=== PATIENT | female | born 1990 | race Caucasian/White ===

== ENCOUNTER → 2021-10-09 | Outpatient (CLI) | payer BC ==
--- NOTE | 2021-10-09 17:20 | KCIC ---
EXAM: CHEST 2 VIEWS. HISTORY: Shortness of breath. COMPARISON: None. FINDINGS: Frontal and lateral views of the chest are obtained. There are no confluent infiltrates. There is no pneumothorax or pleural effusion. The heart is not en larged. Cholecystectomy clips are noted. IMPRESSION: 1. No confluent infiltrates. Electronically signed by: Kristian Cook MD (10/09/2021 5:18 PM) [id number]
== END ==
LOC: KCIC 16:17
PROVIDERS: ATTEND Nurse Practitioner Family
DX: R06.02 Shortness of breath (principal); Z90.49 Acquired absence of other specified parts of digestive tract
CPT/HCPCS: 71046